=== PATIENT | male | born 1975 | race Caucasian/White ===

== ENCOUNTER → 2017-12-15 13:22 | Outpatient (CLI) | payer OTHER, SELFPAY ==
[2017-12-15 13:42] LABS: Basophils # 0.1 K/mm3 (0-0.2); Basophils % 0.6 % (0.1-2.0); Eosinophils # 0.3 K/mm3 (0.0-0.4); Eosinophils % 2.7 % (0.1-12.0); Hematocrit 47.1 % (42.0-52.0); Hemoglobin 15.1 g/dL (14.1-18.0); Lymphocytes # 2.2 K/mm3 (0.7-4.5); Lymphocytes % 22.6 K/mm3 (10-50); Mean Corpuscular HGB Conc 32.1 g/dL (31.8-35.4); Mean Corpuscular Hemoglobin 28.3 pg (27.0-31.2); Mean Corpuscular Volume 88.1 fl (80-94); Mean Platelet Volume 7.6 fl (7.4-10.4); Monocytes # 0.8 K/mm3 (0.1-1.0); Monocytes % 8.1 % (1.7-9.3); Neutrophils # 6.4 K/mm3 (1.8-7.8); Platelet Count 293 K/mm3 (142-424); Red Blood Count 5.34 M/mm3 (4.60-6.20); Red Cell Distribution Width 13.7 % (11.5-17.5); White Blood Count 9.6 K/mm3 (4.8-10.8)
== END ==
PROVIDERS: Visit Provider Otolaryngology
DX: Z01.818 Encounter for other preprocedural examination (principal); L98.9 Disorder of the skin and subcutaneous tissue, unspecified; D23.22 Other benign neoplasm of skin of left ear and external auricular canal
CPT/HCPCS: 36415; 85025; 93005

== ENCOUNTER → 2018-05-26 14:29 | Outpatient (CLI) | payer OTHER, SELFPAY | PROVIDERS: PCP Physician Assistant; Visit Provider Physician Assistant | DX: R06.83 Snoring (principal); R06.2 Wheezing; R05 Cough | CPT/HCPCS: 95806 ==

== ENCOUNTER 2020-02-09 06:33 | Emergency (ER) | payer OTHER, SELFPAY ==
[2020-02-09 06:35] VITALS: BP 147/87; PULSE 62; RESP 16; TEMP 36.6; O2SAT 97; BMI 26.4
--- NOTE | 2020-02-09 06:51 | CT_ITS ---
PROCEDURE: CT ABDOMEN PELVIS WO CON CLINICAL INDICATION: right flank pain Flank pain COMPARISON: None TECHNIQUE: Axial images obtained with sagittal and coronal reformats. All CT scans at the facility use one or more dose reduction, viz: automated exposure control, ma/kV adjustment per patient size (including targeted exams where dose is matched to indication, i.e. head), or iterative reconstruction technique. FINDINGS: LOWER THORAX: No acute finding ABDOMEN & PELVIS: The liver, spleen, adrenal glands, pancreas, and gallbladder an unremarkable unenhanced appearance. There is mild left hydronephrosis and hydroureter secondary to a 2 mm stone at the distal left ureter just proximal to the ureterovesical junction. No intestinal obstruction or free air. Nonspecific bowel gas pattern with a few air-fluid levels within the small bowel without distention. No evidence of appendicitis. No pelvic mass or abnormal fluid collection. No acute bony anomaly. IMPRESSION: 2 mm left ureterovesical junction stone with mild left-sided obstructive uropathy Dictated by: Hernando Summers MD 02/09/2020 07:31 Electronically signed by Hernando Summers MD in [place] 02/09/2020 07:31
[2020-02-09 06:58] LABS: Basophils # 0.1 K/mm3 (0-0.2); Basophils % 0.6 % (0.1-2.0); Eosinophils # 0.3 K/mm3 (0.0-0.4); Eosinophils % 2.9 % (0.1-12.0); Hematocrit 42.9 % (42.0-52.0); Hemoglobin 15.2 g/dL (14.1-18.0); Lymphocytes # 3.8 K/mm3 (0.7-4.5); Lymphocytes % 33.3 % (10-50); Mean Corpuscular HGB Conc 35.5 g/dL (31.8-35.4); Mean Corpuscular Hemoglobin 30.2 pg (27.0-31.2); Mean Corpuscular Volume 84.9 fl (80-94); Mean Platelet Volume 7.9 fl (7.4-10.4); Monocytes # 0.8 K/mm3 (0.1-1.0); Monocytes % 6.6 % (1.7-9.3); Neutrophils # 6.4 K/mm3 (1.8-7.8); Neutrophils % 56.6 % (37.0-80.0); Platelet Count 289 K/mm3 (142-424); Red Blood Count 5.05 M/mm3 (4.60-6.20); Red Cell Distribution Width 13.6 % (11.5-17.5); White Blood Count 11.4 K/mm3 (4.8-10.8)
[2020-02-09 06:59] LABS: Chloride 101 mmol/L (98-107); Potassium 3.6 mmoL/L (3.5-5.1); Sodium 138 mmol/L (136-145)
[2020-02-09 07:02] LABS: Alanine Aminotransferase 35 U/L (12-78); Albumin Level 4.5 g/dl (3.5-5.0); Albumin/Globulin Ratio 1.3 (1.1-1.8); Alkaline Phosphatase 65 U/L (38-126); Anion Gap 14.6 mEq/L (5-15); Aspartate Amino Transferase 29 U/L (17-59); Bilirubin,Total 0.5 mg/dl (0.2-1.3); Blood Urea Nitrogen 12 mg/dl (9-20); Calcium 9.9 mg/dl (8.4-10.2); Carbon Dioxide 26 mmol/L (22.0-30.0); Creatinine Clearance Estimated 108 mL/min (50-200); Estimated Glomerular Filt Rate 72 ml/min (>60); GFR (African American) 87 ML/MIN (>60); Globulin 3.4 g/dL (1.3-3.2); Glucose 115 mg/dl (74-100); Total Protein,Serum 7.9 g/dl (6.3-8.2)
[2020-02-09 07:15] VITALS: BP 114/66; PULSE 47; O2SAT 97
--- NOTE | 2020-02-09 07:16 | PC.NURSE ---
pt return from ct con't to c/o pain 03/28.
[2020-02-09 07:21] VITALS: BP 160/82; PULSE 67
--- NOTE | 2020-02-09 07:33 | HMH.EDGENADL ---
ED Disposition Clinical Impression: Renal colic on left side Disposition: Home, Self-Care Condition on Discharge: Good Instructions: DI for Kidney Stones Additional Instructions: fluids and see pcp and urology Prescriptions: Tamsulosin HCl [Flomax 0.4mg capsule] 0.4 mg PO HS #10 cap Transmission Status: Pending to [facility] #[id number] Hydrocod/Acet 5/325 mg [[place] 5/325mg tablet] 1 tab PO Q6HP PRN #8 tab PRN Reason: Moderate To Severe Pain Prescription Printed Referrals: Maribel Iniguez PA [Primary Care Provider] - Ronnell Spring MD [Staff Physician] - - Critical Care Critical Care Time: No Attestation: On 02/09/20, the high probability of a clinically significant, sudden or life threatening deterioration of the following system(s) required my full and direct attention, intervention and personal management. The time I documented below is in addition to time spent performing reported procedures but includes the following listed in this critical care notation. Medical Decision Making - Medical Records Medical records reviewed: Yes: I reviewed the patient's medical records. - Delroy Inquiry Pt receiving controlled substance: No Vital Signs: 02/09/20 06:35 02/09/20 07:15 02/09/20 07:21 Temperature 97.9 F Temperature Source Oral Pulse Rate [Left Radial] 62 47 L 67 Respiratory Rate 16 Blood Pressure [Right Arm] 147/87 H 114/66 160/82 H Blood Pressure Mean [Right Arm] 107 82 108 Blood Pressure Source [Right Arm] Automatic Cuff Blood Pressure Position [Right Arm] Sitting Sitting Sitting 02 Sat by Pulse Oximetry 97 97 Oxygen Delivery Method Room Air Room Air 02/09/20 07:56 Temperature Temperature Source Pulse Rate [Left Radial] 101 H Respiratory Rate Blood Pressure [Right Arm] 129/84 Blood Pressure Mean [Right Arm] 99 Blood Pressure Source [Right Arm] Blood Pressure Position [Right Arm] Sitting 02 Sat by Pulse Oximetry 97 Oxygen Delivery Method Room Air - Lab Data Lab results reviewed: Yes: I reviewed the patient's lab results. Lab Results 02/09/20 06:48: WBC 11.4 H, RBC 5.05, Hgb 15.2, Hct 42.9, MCV 84.9, MCH 30.2, MCHC 35.5 H, RDW 13.6, Plt Count 289, MPV 7.9, Neut % (Auto) 56.6, Lymph % (Auto) 33.3, Love % (Auto) 6.6, Eos % (Auto) 2.9, Baso % (Auto) 0.6, Neut # (Auto) 6.4, Lymph # (Auto) 3.8, Love # (Auto) 0.8, Eos # (Auto) 0.3, Baso # (Auto) 0.1 02/09/20 06:48: Sodium 138, Potassium 3.6, Chloride 101, Carbon Dioxide 26, Anion Gap 14.6, BUN 12, Creatinine 1.10, Estimated Creat Clear 108, Estimated GFR 72, Est GFR ( Amer) 87, Glucose 115 H, Calcium 9.9, Total Bilirubin 0.5, AST 29, ALT 35, Alkaline Phosphatase 65, Total Protein 7.9, Albumin 4.5, Globulin 3.4 H, Albumin/Globulin Ratio 1.3 Result diagrams: 02/09/20 06:48 02/09/20 06:48 Orders (Tests/Meds): ED MEDICATIONS Discontinued Medications Generic Name Dose Route Start Last Admin Trade Name Freq PRN Reason Stop Dose Admin Hydromorphone HCl 1 mg 02/09/20 07:20 02/09/20 07:22 Dilaudid 2mg/Ml Syringe IV 02/09/20 07:21 1 mg ONCE ONE Administration Hydromorphone HCl 1 mg 02/09/20 07:58 02/09/20 07:58 Dilaudid 2mg/Ml Syringe IV 02/09/20 07:59 1 mg ONCE ONE Administration Sodium Chloride 1,000 mls @ 999 mls/hr 02/09/20 07:00 02/09/20 06:55 Sod Chlor 0.9% 1000ml Bag IV 02/09/20 08:00 999 mls/hr .Q1H1M MARTIN Administration Ketorolac Tromethamine 30 mg 02/09/20 06:53 02/09/20 06:54 Toradol 30mg/Ml Vial IV 02/09/20 06:54 30 mg ONCE ONE Administration Ondansetron HCl 4 mg 02/09/20 06:53 02/09/20 06:54 Zofran 4mg/2ml Vial IV 02/09/20 06:54 4 mg ONCE ONE Administration Ondansetron HCl 4 mg 02/09/20 07:58 02/09/20 07:58 Zofran 4mg/2ml Vial IV 02/09/20 07:59 4 mg ONCE ONE Administration ORDERS Category Date Time Status Urinalysis and Microscopic Stat Lab 02/09/20 06:50 Ordered - CT Data CT Scan: Abdomen, Pelvis
[2020-02-09 07:56] VITALS: BP 129/84; PULSE 101; O2SAT 97
[2020-02-09 08:13] LABS: Microscopic, Urine URINE MICROSCOPIC (MICROSCOPIC)
[2020-02-09 08:21] LABS: Appearance,Urine CLOUDY (Clear); Blood, Urine 3+ (Negative); Color,Urine YELLOW (Yellow); Glucose,Urine (UA) Negative (Negative); Ketones,Urine Negative (Negative); Leukocyte Esterase,Urine TRACE (Negative); Nitrate,Urine Negative (Negative); Protein,Urine 1+ (Negative); Specific Gravity, Urine >= 1.030 (1.005-1.030); Urobilinogen,Urine 0.2 EU/dl (0.2)
[2020-02-09 08:25] LABS: Bilirubin,Urine Negative (Negative)
[2020-02-09 08:35] VITALS: BP 117/74; PULSE 48; RESP 16; TEMP 36.6; O2SAT 98
[2020-02-09 08:36] LABS: RBC,Urine 20-50 #/hpf (0-3); WBC,Urine 20-50 #/hpf (0-3)
[2020-02-09 08:37] LABS: Bacteria,Urine 3+ /lpf
== END 2020-02-09 08:37 | disposition home or self-care (01) ==
PROVIDERS: Emergency Provider Emergency Medicine; PCP Physician Assistant
DX: N23 Unspecified renal colic (principal)
CPT/HCPCS: 74176; 80053; 81001; 85025; 87086; 96365; 96375; 96376; 99284; J2405

== ENCOUNTER 2021-12-21 09:06 | Emergency (ER) | payer OTHER, SELFPAY ==
[2021-12-21 09:51] VITALS: BP 129/79; PULSE 54; RESP 17; TEMP 36.8; O2SAT 97; BMI 29.9
[2021-12-21 10:17] LABS: Strep Scrn Group A (Rapid) Negative (Negative)
--- NOTE | 2021-12-21 10:19 | HMH.EDUTC ---
[facility] [place] Disposition Clinical Impression: Sinusitis Qualifiers: Sinusitis location: unspecified location Chronicity: unspecified Qualified Code(s): J32.9 - Chronic sinusitis, unspecified Disposition: Home, Self-Care Condition on Discharge: Good Instructions: Sinusitis, DI for Sinusitis Additional Instructions: *Monitor Temp, Over the counter Motrin or Tylenol as directed/as needed Tylenol every 4 hours and Motrin every 6 hours (as long as your family doctor has told you that you can take it) for fever or pain. and straight to ER if unable to lower temp less than 101.0 after medication given *Warm salt water gargles may help to soothe the throat *Throat Lozenges *Warm fluids like tea with honey may help to soothe the throat *Sleep elevated *Humidifier/Vaporizer Your throat swab was sent for culture. Those results are typically sent to your primary care. Be sure to follow up in 2-3 days with your family doctor/primary care physician if no improvement so they can review those result and treat if necessary. If you don?t have a primary care doctor, I recommend you get one but in the mean time, you will have to return to a walk in clinic Follow up IMMEDIATELY for new or worsening symptoms or no Noticeable improvement over the next 48-72 hours. 911 for difficulty breathing or swallowing Prescriptions: methylPREDNISolone [Medrol 4mg tab] 4 mg PO DIRECTED #21 tab Transmission Status: Pending to [facility] # Azithromycin [Z-Maulik 250mg Tab] 250 mg PO DIRECTED #6 tab Transmission Status: Pending to [facility] # Referrals: Maribel Iniguez PA [Primary Care Provider] - As needed Medical Decision Making - Delroy Inquiry Pt receiving controlled substance: No Delroy was queried for this patient: No Vital Signs: 12/21/21 09:51 Temperature 98.3 F Temperature Source Oral Pulse Rate [Left Radial] 54 L Respiratory Rate 17 Blood Pressure [Right Arm] 129/79 Blood Pressure Mean [Right Arm] 95 02 Sat by Pulse Oximetry 97 - Lab Data Lab results reviewed: Yes: I reviewed the patient's lab results. Lab Results 12/21/21 09:09: Group A Strep Rapid Negative Orders (Tests/Meds): ORDERS Category Date Time Status Strep Screen Confirmation Stat Micro 12/21/21 09:09 Received [facility] [place] HPI - General Stated complaint: cough,headache,congestion Time Seen by Provider: 12/21/21 10:19 Source of Information: Patient Description of Symptoms (Recalled from Triage Doc. by RN): patient complains of cough,sore throat, runny nose, headache HEENT Symptoms (Recalled from RN notes): Yes Resp Symptoms (Recalled from RN notes): Yes Skin Symptoms (Recalled from RN notes): No MS Symptoms (Recalled from RN notes): No Functional Status (Recalled from RN notes): wnl - History of Present Illness Provider Complaint: Patient states that he has been having cough, sinus congestion and pressure along with headache States that he has continued to feel worse over the last few days so today he came in to get checked - Related Data Previous Rx's Medication Instructions Recorded Azithromycin [Z-Maulik 250mg Tab] 250 mg PO DIRECTED #6 tab 12/21/21 methylPREDNISolone [Medrol 4mg 4 mg PO DIRECTED #21 tab 12/21/21 tab] Allergies Allergy/AdvReac Type Severity Reaction Status Date / Time No Known Allergies Allergy Verified 12/21/21 09:58 - Worker's Comp Is this a Worker's Comp case?: No [facility] History - Hepatitis A Screen Attestation statement:: This patient has been screened for Hepatitis A risk factors. I have reviewed the patient's past medical history: Yes Medical History: Reports:: Kidney Stones Denies:: Cancer, Diabetes Mellitus Type 1, Diabetes Mellitus Type 2, Internal Pacemaker, MRSA, Seizures Other Medical History: Denies: Blood Transfusion Reaction Laterality Cases: Bilateral: Other Other Surgeries: Yes: No Previous Surgery, Other (vascectomy). No: Pacemaker Amput
[2021-12-21 10:48] VITALS: BP 129/79; PULSE 54; RESP 17; TEMP 36.8
== END 2021-12-21 10:49 | disposition home or self-care (01) ==
PROVIDERS: Emergency Provider Nurse Practitioner; PCP Physician Assistant
DX: J32.9 Chronic sinusitis, unspecified (principal)
CPT/HCPCS: 87430; 99212; G0463

== ENCOUNTER → 2022-08-27 09:45 | Outpatient (CLI) | payer OTHER, SELFPAY ==
[2022-08-27 15:24] LABS: Prostate Specific Ag Screen 0.6 ng/ml (0.0-4.0)
[2022-08-27 15:45] LABS: Hemoglobin A1C 5.4 % (4.0-6.0)
== END ==
PROVIDERS: PCP Nurse Practitioner Family; Visit Provider Nurse Practitioner Family
DX: R31.9 Hematuria, unspecified (principal); R53.83 Other fatigue; Z12.5 Encounter for screening for malignant neoplasm of prostate; Z00.00 Encounter for general adult medical examination without abnormal findings
CPT/HCPCS: 83036; 87086; G0103

== ENCOUNTER 2022-10-07 07:42 | Day surgery (SDC) | payer OTHER, SELFPAY ==
[2022-09-24 12:58] VITALS: BMI 31.5
[2022-10-07] VITALS (8 sets, daily range): BP systolic 89–134; BP diastolic 53–74; PULSE 54–75; RESP 16–18; TEMP 36.1–36.6; O2SAT 92–99
--- NOTE | 2022-10-07 09:19 | EXP.ANES.CKL ---
[facility] Disclaimer: The information contained in this section may have been updated after the patient was seen, as this information can be updated by other users. Medical History TATY (obstructive sleep apnea) Surgical History H/O vasectomy History of excision of lesion Family History Other FH: CABG (coronary artery bypass surgery) Family history of diabetes mellitus type II Family history of hyperlipidemia Family history of hypertension Family history of hypothyroidism Social History Smoking Status: Never smoker alcohol intake: never substance use type: denies use current occupational status: employed Travel in the last 8 weeks: None household members: spouse and family housing: house lives independently: Yes marital status: education level: high school service: No 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 current occupational exposures/hazards: No caffeine: Yes special se needs: No agree to transfusion: No do you feel safe at home: Yes victim of physical abuse: No victim of emotional abuse: No victim of sexual abuse: No would you like helpful sources: No [facility] Anesthesia Checklist Patient Identification Patient Identification: Arm Band and Verbal (Name & ) Structural Data Admitted From: Home Planned Operative Procedure/s: Colonoscopy Consent for Planned Operative Procedure(s) Verified: Yes NPO Status Verified Time NPO: 00:00 Additional verifications Anesthesia Reactions: No Hx Blood Transfusions: No Blood Transfusion Reaction: No Airway Assessment C-Spine Mobility Assessed: Yes TMJ Mobility Assessed: Yes Dentition: Good Dentition Neurological Assessment Level of Consciousness: Awake Hx Seizures: No Numbness or tingling in extremities: No Anesthesia Plan Anesthesia Risk discussed: Yes Anesthesia Plan: Verified ASA Class: I Anesthesia Type: MAC
--- NOTE | 2022-10-07 09:30 | P.PCN_ITS ---
Procedure: Date: 10/07/22 Patient Date of :: 1975 Procedure Performed:: Colonoscopy Indications:: Screening colonoscopy Performing Provider:: Avni Leavitt MD Referring Provider:: PORSCHE Melendrez Sedation:: See RN records Procedure:: After placing the patient in the left lateral decubitus position, the colonoscopy was gently inserted into the rectum and under direct visualization advanced to the cecum which was identified by transillumination in the right lower quadrant, identification of the ileocecal valve, appendiceal orifice, and cecal strap. Color, texture, mucosa, and anatomy of the colon were carefully examined with the scope. Findings:: Anal canal: normal Rectum: internal hemorhoids. Sessile polyp less than 5 mm in size. Removed with cold snare polyectomy Sigmoid colon: normal without polyps or inflammatory changes Descending colon: normal without polyps or inflammatory changes Splenic flexure: normal Transverse colon: normal without polyps or inflammatory changes Hepatic flexure: normal Ascending colon: normal without polyps or inflammatory changes Cecum: Sessile polyp less than 5 mm in size. Removed with cold snare polyp ectomy Terminal ileum: not visualized Recommendations:: Await pathology results Repeat colonoscopy in 5 years Complications:: None Estimated blood obtained (mL): 0
== END 2022-10-07 10:15 | disposition home or self-care (01) ==
PROVIDERS: PCP Nurse Practitioner Family; Visit Provider Internal Medicine
PROC: 0DJD8ZZ Inspection of Lower Intestinal Tract, Via Natural or Artificial Opening Endoscopic (ICD-10-PCS; CPT 45378; principal; 2022-10-07 09:00)
DX: Z12.11 Encounter for screening for malignant neoplasm of colon (principal); D12.0 Benign neoplasm of cecum; K64.8 Other hemorrhoids
CPT/HCPCS: 45385; J2704

== ENCOUNTER 2023-10-27 09:40 | Outpatient (CLI) | payer OTHER, SELFPAY | END 2023-10-27 23:59 | LOC: LAB.DROPOF 10-28 09:41 | PROVIDERS: PCP Nurse Practitioner Family; Visit Provider Nurse Practitioner Family | DX: R05.8 Other specified cough (principal) | CPT/HCPCS: 87070 ==

== ENCOUNTER 2024-01-13 07:51 | Emergency (ER) | payer OTHER, SELFPAY ==
[2024-01-13 07:53] VITALS: BP 156/87; PULSE 59; RESP 18; TEMP 36.7; O2SAT 99; BMI 29.2
[2024-01-13 07:57] VITALS: BP 156/87; PULSE 59; O2SAT 100
[2024-01-13 08:00] VITALS: BP 175/110; PULSE 60; O2SAT 99
--- NOTE | 2024-01-13 08:05 | PC.NURSE ---
DR PERERA AT BEDSIDE
--- NOTE | 2024-01-13 08:05 | PC.NURSE ---
DR PERERA AT BEDSIDE
--- NOTE | 2024-01-13 08:14 | ED_ITS ---
Discharge Plan Disposition Patient Disposition: Home, Self-Care Condition: Good Prescriptions Prescriptions: New hydrocodone-acetaminophen 5-325 mg tablet 1 tab PO Q8H PRN (Reason: pain) Qty: 12 0RF ketorolac 10 mg tablet 10 mg PO Q8H PRN (Reason: pain) Qty: 12 0RF No Action fluticasone propionate [Allergy Relief (fluticasone)] 50 mcg/actuation spray,suspension 1 spray intranasal DAILY Qty: 16 2RF Rx Instructions: administer into each nostril methylprednisolone [Medrol (Maulik)] 4 mg tablets,dose pack 4 mg PO DAILY Qty: 21 0RF Rx Instructions: Take as directed levocetirizine [Xyzal] 5 mg tablet 5 mg PO HS Qty: 90 3RF Referrals Follow up/Referrals: Maribel Iniguez PA [Primary Care Provider] - See instructions Activity Restrictions/Add. Instructions Additional Instructions/Restrictions: You were evaluated in the emergency department today. Please follow-up with your primary care provider or an eye doctor over the next 1 to 2 days for re assessment to ensure that your eyes are getting better. 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 Do not drive or operate heavy machinery while taking narcotic pain medication. Use the antibiotic ointment provided to you every 4-6 hours while awake for the next 4 days or until your symptoms resolved. Ensure that you use proper protective equipment with future welding. Return to the emergency department for any new or worsening symptoms. Clinical Impressions Clinical Impression: UV keratitis Stand Alone Forms Stand Alone Forms: Work/School Release Instructions Patient Instructions: DI for Eye Flash Burn, DI for Keratitis Discharge ED Provider: Isela Pham General Adult HPI General Chief complaint: Eye Problems Stated complaint: redness and burning in both eyes Time Seen by Provider: 01/13/24 07:57 Mode of Arrival: Ambulatory Source of Information: Patient Limitations: No Limitations Description of Symptoms (Recalled from ER Triage Doc. 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 Patient notes that he was welding last night around 9 PM and was using a plasma cutter to protect his eyes but not his usual welding helmet. He states that several hours later around 5 AM, he gradually developed redness, burning, watery drainage from his eyes. He notes his vision is blurred secondary to the watery drainage. He notes this has happened before when he had Welders flash but not this bad. No other concerns noted at this time. He does not wear contact lenses. Related Data Previous Rx's Medication Instructions Recorded fluticasone propionate 50 1 spray intranasal DAILY #16 grams 08/02/23 mcg/actuation nasal spray,suspension (Allergy Relief (fluticasone)) levocetirizine 5 mg tablet (Xyzal) 5 mg PO HS #90 tabs 10/27/23 methylprednisolone 4 mg tablets in 4 mg PO DAILY #21 tabs 10/27/23 a dose pack (Medrol (Maulik)) hydrocodone 5 mg-acetaminophen 325 1 tab PO Q8H PRN pain #12 tabs 01/13/24 mg tablet ketorolac 10 mg tablet 10 mg PO Q8H PRN pain #12 tabs 01/13/24 Allergies Allergy/AdvReac Type Severity Reaction Status Date / Time No Known Allergies Allergy Verified 10/27/23 11:20 [facility] Disclaimer: The information contained in this section may have been updated after the patient was seen, as this information can be updated by other users. 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 Colon cancer screening Wheezing Auricular cyst TATY (obstructive sleep apnea) Surgical History History of excision of lesion H/O vasectomy Family History Other FH: CABG (coronary artery bypass surgery) Family history of diabetes mellitus type II Family history of hyperlipidemia Family history of hypertension Family history of hypothyroidism Social History Smoking Status: Never smoker alcohol intake: never substance use type: denies use current occupational status: employed Travel in the last 8 weeks: None household members: spouse and family housing: house lives independently: Yes marital status: education level: high school service: No 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 current occupational exposures/hazards: No caffeine: Yes special se needs: No agree to transfusion: No do you feel safe at home: Yes victim of physical abuse: No victim of emotional abuse: No victim of sexual abuse: No would you like helpful sources: No ROS Obtained: Yes All systems reviewed & no additional complaints except as documented Physical Exam General General appearance: alert and in no apparent distress Head Head exam: atraumatic and normocephalic Eye Eye exam: Present PERRL, EOMI, conjunctival redness and conjunctival injection; Absent periorbital swelling or periorbital tenderness Expanded Eye Exam Eyelids: bilateral: normal inspection Pupils: Bilateral: regular, round and reactive Sclera/Conjunctival: bilateral: injection IOP (R) in mmH IOP (L) in mmH IOP measured with: other Comment: Scattered bilateral fluorescein uptake consistent with UV keratitis. No notable foreign bodies, ulcers, or large abrasions. ENT ENT exam: Present normal exam, normal oropharynx, mucous membranes moist and normal external ear exam Neck Neck exam: Present normal inspection, full ROM and trachea midline; Absent tenderness Chest Chest inspection: Present normal inspection and symmetric chest wall rise; Absent tenderness Respiratory Respiratory exam: Present normal lung sounds bilaterally; Absent respiratory distress, wheezes, stridor or accessory muscle use Cardiovascular Cardiovascular exam: Present regular rate and normal rhythm Abdominal Exam Abdominal exam: Present soft; Absent distention, tenderness or guarding Extremities Exam Extremities exam: Present normal inspection, full ROM and normal capillary refill; Absent tenderness or edema Back Exam Back exam: Present normal inspection and full ROM; Absent tenderness Neurological Exam Neurological exam: Present alert, oriented X3, CN II-XII intact and normal gait; Absent motor sensory deficit Psychiatric Psychiatric exam: Present normal affect and normal mood Skin Skin exam: Present warm and dry Medical Decision Making Medical Records Medical records reviewed: Yes I reviewed the patient's medical records. Delroy Inquiry Pt receiving controlled substance: Yes Delroy was queried for this patient: Yes Risks and benefits of using a controlled substance: were discussed with pt by me Vital Signs: 06/27/24 07:53 Temperature 98.0 F Temperature Source Oral Pulse Rate [Left Radial] 59 L Respiratory Rate 18 Blood Pressure [Right Arm] 156/87 H Blood Pressure Mean [Right Arm] 110 Blood Pressure Source [Right Arm] Automatic Cuff Blood Pressure Position [Right Arm] Sitting 02 Sat by Pulse Oximetry 99 Oxygen Delivery Method Room Air Lab Data Lab results reviewed: Yes I reviewed the patient's lab results. Medical Decision Narrative: In summary, this patient is a 48-year-old male presenting to the Emergency Department for evaluation of bilateral tearing and eye pain after welding last night. Differential diagnoses considered include but are not limited to UV keratitis, foreign body, corneal ulceration, corneal abrasion. Ruling out the most morbid conditions drove assessment. On exam, the patient is very well-appearing. He has bilateral conjunctival injection with tearing. Pupils are equal and reactive, extraocular movements are intact, and he has no foreign bodies noted. His eyes were stained with fluorescein and numbed with tetracaine. Pressures were checked and are normal. He has scattered fluorescein uptake consistent with UV keratitis. No large ulcerations or abrasions. At this time, feel history and exam are consistent with UV keratitis. He was given IM Toradol and oral Tylenol for symptomatic improvement as well as given erythromycin ointment here to take home. He was given instructions for use. He was prescribed [place] and Toradol to take at [facility] as needed for severe pain. He was given instructions for supportive management and close outpatient follow-up with an eye doctor. He was given strict return precautions and was discharged in stable condition after all questions were answered. Critical Care Critical Care Time Critical Care Time: No
[2024-01-13] MEDS: KETOROLAC 30MG/ML VIAL 30 MG IM (08:23)
[2024-01-13] MEDS: ACETAMINOPHEN 500MG TAB 1000 MG PO (08:23)
[2024-01-13] MEDS: FLUORESCEIN SODIUM 1MG STRIP 1 MG OP (08:23)
[2024-01-13] MEDS: TETRACAINE 0.5% OPTH SOL 15ML 4 ML OP (08:23)
[2024-01-13] MEDS: ERYTHROMYCIN BASE 1 GM OINT...G. 2 GM OP (08:25)
[2024-01-13 08:37] VITALS: BP 145/87; PULSE 60; RESP 18; TEMP 36.7; O2SAT 99
== END 2024-01-13 08:37 | disposition home or self-care (01) ==
PROVIDERS: Emergency Provider Emergency Medicine; PCP Physician Assistant
DX: H16.133 Photokeratitis, bilateral (principal); W89.0XXA Exposure to welding light (arc), initial encounter
CPT/HCPCS: 96372; 99283; J1885

== ENCOUNTER 2025-01-02 09:26 | Outpatient (CLI) | payer MEDICAID, SELFPAY ==
--- NOTE | 2025-01-02 09:29 | XR_ITS ---
FINAL REPORT CLINICAL HISTORY: Left knee pain, swelling x1 week COMPARISON: None FINDINGS: LEFT KNEE Three views demonstrate no acute fracture or dislocation. The joint spaces appear normal. No acute soft tissue abnormality is seen. IMPRESSION: No acute bony abnormality. Reviewed, Interpreted and Dictated by Saul Flaherty MD Transcribed by Ernestina Ellsworth Authenticated and [facility]
== END 2025-01-02 23:59 | disposition home or self-care (01) ==
LOC: RAD 09:27
PROVIDERS: PCP Nurse Practitioner Family; Visit Provider Nurse Practitioner Family
DX: M25.562 Pain in left knee (principal)
CPT/HCPCS: 73562

== ENCOUNTER 2025-01-25 09:08 | Outpatient (CLI) | payer MEDICAID, SELFPAY ==
[2025-01-25 10:02] LABS: Hematocrit 41.2 % (42.0-52.0); Hemoglobin 13.7 g/dL (14.1-18.0); Immature Granulocytes % 0.3 %; Mean Corpuscular HGB Conc 33.3 g/dL (31.8-35.4); Mean Corpuscular Hemoglobin 29.0 pg (27.0-31.2); Mean Corpuscular Volume 87.1 fl (80-94); Nucleated Red Blood Cells % 0 %; Platelet Count 260 K/mm3 (142-424); Red Blood Count 4.73 M/mm3 (4.60-6.20); Red Cell Distribution Width-SD 44.2 fL; White Blood Count 6.7 K/mm3 (4.8-10.8)
[2025-01-25 10:54] LABS: Alanine Aminotransferase 27 U/L (12-78); Albumin Level 4.1 g/dl (3.5-5.0); Albumin/Globulin Ratio 1.6 (1.1-1.8); Alkaline Phosphatase 64 U/L (38-126); Anion Gap 14.0 mEq/L (5-15); Aspartate Amino Transferase 25 U/L (17-59); Bilirubin,Total 0.6 mg/dl (0.2-1.3); Blood Urea Nitrogen 13 mg/dl (9-20); Calcium 9.6 mg/dl (8.4-10.2); Carbon Dioxide 28 mmol/L (22.0-30.0); Chloride 101 mmol/L (98-107); Cholesterol 196 mg/dl (140-200); Creatinine,Serum 1.00 mg/dl (0.66-1.25); Estimated Glomerular Filt Rate 79 ml/min (>60); GFR (African American) 95 ML/MIN (>60); Globulin 2.6 g/dL (1.3-3.2); Glucose 110 mg/dl (74-100); HDL Cholesterol 29 mg/dl (40-60); Potassium 4.0 mmoL/L (3.5-5.1); Sodium 139 mmol/L (136-145); Total Protein,Serum 6.7 g/dl (6.3-8.2); Triglycerides 199 mg/dl (30-150)
[2025-01-25 11:25] LABS: Thyroid Stimulating Hormone 2.51 uIU/mL (0.465-4.68)
[2025-01-25 11:48] LABS: Hemoglobin A1C 6.5 % (4.0-6.0)
== END 2025-01-25 23:59 | disposition home or self-care (01) ==
LOC: LAB 09:08
PROVIDERS: PCP Nurse Practitioner Family; Visit Provider Nurse Practitioner Family
DX: Z00.00 Encounter for general adult medical examination without abnormal findings (principal); G47.33 Obstructive sleep apnea (adult) (pediatric); I10 Essential (primary) hypertension
CPT/HCPCS: 36415; 80053; 80061; 83036; 84443; 85025; G0103